=== PATIENT | female | born 1975 | race Caucasian/White ===

== ENCOUNTER 2016-07-21 11:26 | Emergency (ER) | payer BC ==
[2016-07-21] MEDS ORDERED: Aspirin Low Dose CHEW TAB* 81 MG PO ONE (12:15)
[2016-07-21] MEDS ORDERED: Ketorolac INJ* 30 MG/ML 1 ML VIAL IV PUSH ONE ×2 (12:38→15:02)
--- NOTE | 2016-07-21 13:04 | RAD ---
INDICATION: Chest pain. COMPARISON: Comparison is made with a prior chest x-ray study from May 13, 2015. TECHNIQUE: A portable view of the chest was obtained. FINDINGS: Cardiac and mediastinal contours appear to be within normal limits. The lungs are clear. No pleural effusion is seen. IMPRESSION: NO EVIDENCE FOR ACUTE DISEASE.
[2016-07-21 14:14] LABS: Hematocrit 37 % (35-47); Hemoglobin 12.2 g/dl (12.0-16.0); Mean Corpuscular HGB Conc 33 g/dl (31-36); Mean Corpuscular Hemoglobin 28 pg (27-31); Mean Corpuscular Volume 83 fL (80-97); Mean Platelet Volume 8 um3 (7.4-10.4); Red Blood Count 4.45 10^6/ul (4.0-5.4); Red Cell Distribution Width 15 % (10.5-15)
[2016-07-21 14:28] LABS: Urine Bacteria Absent (Absent); Urine Bilirubin Negative (Negative); Urine Glucose Negative (Negative); Urine Nitrite Negative (Negative)
[2016-07-21 14:33] LABS: Albumin 3.6 g/dL (3.2-5.2); BUN/Creatinine Ratio 15.4 (8-20); Calcium 8.9 mg/dL (8.6-10.3); EGFR African American 129.8 (>60); Globulin 3.3 g/dL (2-4); Potassium 3.4 mmol/L (3.5-5.0); Total Bilirubin 0.5 mg/dL (0.2-1.0); Total Protein 6.9 g/dL (6.4-8.9)
[2016-07-21 15:14] VITALS: BP 140/75
--- NOTE | 2016-07-31 17:50 | ED ---
jazmine English Timothy, scribed for Hany Acuña MD on 07/21/16 at 1230 . Shortness of Breath - HPI Summary HPI Summary: Radha Lee is a 40 yo female presenting to [facility] with intermittent HTN, SOB, and cough for the past 2 weeks. She states she has a lingering cold that won't go away, also for the past 2 weeks. She has 2/10 chest pain since last night. She also states she has generalized body aches, and has lost her appetite. She denies fevers, chills, sweats, urinary symptoms. She is also c/o swollen feet bilaterally. her MHx also includes anxiety and HLD. - History of Current Complaint Chief Complaint: EDHypertension Time Seen by Provider: 07/21/16 12:15 Hx Obtained From: Patient Onset/Duration: Gradual Onset, Lasting Weeks, Still Present Timing: Intermittent Episodes Lasting: Current Severity: Moderate Dyspnea At: Rest Associated Signs & Symptoms: Cough (Nonproductive), Chest Pain Unrelated to Cough - discomfort, Edema - bilateral feet - Allergy/Home Medications Allergies/Adverse Reactions: Allergies Allergy/AdvReac Type Severity Reaction Status Date / Time Codeine Allergy Headache Verified 07/21/16 11:31 Sulfa Antibiotics Allergy Hives Verified 07/21/16 11:31 PMH/Surg Hx/FS Hx/Imm Hx Cardiovascular History: Reports: Hx Hypercholesterolemia, Hx Hypertension Psychiatric History: Reports: Hx Anxiety - Surgical History Surgery Procedure, Year, and Place: tubal ligation Infectious Disease History: No Infectious Disease History: Denies: Traveled Outside the [place] in Last 30 Days - Family History Known Family History: Positive: Cardiac Disease, Hypertension, Diabetes - Social History Lives: With Family Alcohol Use: None Hx Substance Use: No Substance Use Type: Reports: None Hx Tobacco Use: No Smoking Status (MU): Never Smoked Tobacco Review of Systems Constitutional: Negative Negative: Fever, Chills, Skin Diaphoresis Eyes: Negative Negative: Other - eye drainage ENT: Negative Negative: Sore Throat, Nasal Discharge Cardiovascular: Other - HTN Positive: Chest Pain - discomfort Positive: Shortness Of Breath, Cough Gastrointestinal: Other - loss of appetite Negative: Abdominal Pain, Vomiting, Nausea Genitourinary: Negative Negative: dysuria, hematuria Positive: Myalgia, Edema - bilateral feet Skin: Negative Negative: Rash Neurological: Negative Psychological: Normal All Other Systems Reviewed And Are Negative: Yes Physical Exam - Summary Physical Exam Summary: Constitutional: Well-developed, Well-nourished, Alert. (-) Distressed Skin: Warm, Dry HENT: Normocephalic; Atraumatic Eyes: Conjunctiva normal Neck: Musculoskeletal ROM normal neck. (-) JVD, (-) Stridor, (-) Tracheal deviation Cardio: Rhythm regular, rate normal, Heart sounds normal; Intact distal pulses; The pedal pulses are 2+ and symmetric. Radial pulses are 2+ and symmetric. (-) Murmur Pulmonary/Chest wall: Effort normal. (-) Respiratory distress, (-) Wheezes, (-) Rales Abd: Soft, (-) Tenderness, (-) Distension, (-) Guarding, (-) Rebound Musculoskeletal: (-) Edema Lymph: (-) Cervical adenopathy Neuro: Alert, Oriented x3 Psych: Mood and affect Normal Triage Information Reviewed: Yes Vital Signs On Initial Exam: Initial Vitals Temp Pulse Resp BP Pulse Ox 99 F 97 22 173/100 99 07/21/16 11:31 07/21/16 11:31 07/21/16 11:31 07/21/16 11:31 07/21/16 11:31 Vital Signs Reviewed: Yes Diagnostics - Vital Signs Vital Signs Temp Pulse Resp BP Pulse Ox 07/21/16 11:31 99 F 97 22 173/100 99 - Laboratory Result Diagrams: 07/21/16 13:45 07/21/16 13:45 Lab Statement: Any lab studies that have been ordered have been reviewed, and results considered in the medical decision making process. - Radiology CXR Xray Interpretation: No Acute Changes - IMPRESSION: NO EVIDENCE FOR ACUTE DISEASE. Radiology Interpretation Completed By: Radiologist - EKG 1137 Cardiac Rate: NL - 91 BPM EKG Interpretation: NSR @ [address] segments. Re-Evaluation - Re-Evaluation First Eval Re-Evaluation Time: 15:00 Change: Unchanged Comment: Pt status is unchanged. She is still having joint and body ache. She is too far through the course of disease for tamiflu. Course/Dx - Course Assessment/Plan: Radha Longoria is a 40 yo female presenting to [facility] with HTN, SOB, and cough for the past 2 weeks. After normal EKG, normal CXR and review of her lab work, she will be discharged home with viral syndrome, arthralgia, myalgia. - Diagnoses Provider Diagnoses: Viral syndrome, Arthralgia, Myalgia Discharge - Discharge Plan Condition: Stable Disposition: HOME Prescriptions: Ketorolac TAB (NF) [Toradol TAB (NF)] 10 mg PO Q6H #24 tab Patient Education Materials: Viral Syndrome (ED), Arthralgia (ED), Musculoskeletal Pain (ED) Referrals: Jhonny Jj MD [Primary Care Provider] - If Needed Additional Instructions: Please follow up with convenient care within 48 hours regarding your visit to the emergency department today. Return to the emergency department with any new or recurring symptoms. The documentation as recorded by the jazmine soni Timothy accurately reflects the service I personally performed and the decisions made by , Hany Acuña MD.
== END 2016-07-21 15:59 | disposition home or self-care (01) ==
LOC: ED 11:26
DX: B34.9 Viral infection, unspecified (principal); M79.1 Myalgia; R05 Cough; R07.9 Chest pain, unspecified; R60.0 Localized edema; R06.02 Shortness of breath; M25.50 Pain in unspecified joint
CPT/HCPCS: 36415; 71010; 80053; 81003; 81015; 83605; 83880; 84484; 85025; 87086; 87502; 93005; 96374; 96376; 99283; A9270-GY; J1885